=== PATIENT | male | born 1990 | race African-American/Black ===

== ENCOUNTER 2018-01-22 06:50 | Emergency (ER) | payer SELFPAY ==
[2018-01-22] MEDS ORDERED: Ketorolac 60 MG/2 ML SDV IM ONE (07:32)
--- NOTE | 2018-01-22 07:55 | EDM.PDOC ---
ED HPI GENERAL MEDICAL PROBLEM - General Chief Complaint: Abdominal Pain Stated Complaint: L ABDOMINAL PAIN Time Seen by Provider: 01/22/18 07:15 Source of Information: Reports: Patient History Limitations: Reports: No Limitations - History of Present Illness INITIAL COMMENTS - FREE TEXT/NARRATIVE: 27-year-old otherwise healthy male arrives with left sided flank and lateral left chest pain for the past 24 hours. It hurts to move, breathe, and it seemed to be worse this morning when he was urinating. No fevers or chills, despite it hurting to breathe he does not feel short of breath. He is splinting his respirations. It started after he was carrying his child around yesterday but he doesn't remember any specific incident. He is a "customs inspector" by trade and he says this hurts as much as anything he's ever had. He has no rash over the tender area or bruising. He has never had this in the past. On further questioning he does admit that he's had some lower extremity edema over the last several days, starting on the left. He couldn't even get his boots on the last couple of days. He has no leg pain. Onset: Gradual Duration: Day(s): (Over the past 24 hours) Location: Reports: Chest, Abdomen Severity: Moderate Improves with: Reports: Other (Took some Tylenol this morning and that seemed to help) Worsens with: Reports: Movement Associated Symptoms: Reports: Chest Pain. 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 Denies: Shortness of Breath, Cough Cardiovascular: Denies: Dyspnea on Exertion, Palpitations GI/Abdominal: Reports: Abdominal Pain (Extreme upper lateral abdomen under the distal rib cage) : Reports: Flank Pain. Denies: Dysuria, Frequency Musculoskeletal: Denies: Leg Pain Skin: Reports: No Symptoms Neurological: Reports: No Symptoms Free Text/Narrative/Comment: Patient has been experiencing lower extremity edema over the past several days, somewhat worse on the left. ED EXAM, GENERAL - Physical Exam Exam: See Below Exam Limited By: No Limitations General Appearance: Alert, Mild Distress (Looks fairly uncomfortable, especially when moving) Head: Atraumatic Respiratory/Chest: No Respiratory Distress, Lungs Clear, Other (I can reproduce some pain when palpating the lower border of the left lateral ribs, also he responds to pain with percussion of the left flank) Cardiovascular: Regular Rate, Rhythm. No: Extra Beats GI/Abdominal: Soft, Tender (Some minimal tenderness to deep palpation of the left upper quadrant, no guarding or rebound) Extremities: Pedal Edema (Patient does have fairly symmetric trace edema bilaterally of the lower extremities around the ankles) Neurological: Alert, Oriented Skin Exam: Warm, Dry Course - Vital Signs Last Recorded V/S: Last Vital Signs Temp 96.8 F 01/22/18 07:07 Pulse 101 H 01/22/18 09:48 Resp 16 01/22/18 09:48 BP 133/73 01/22/18 09:48 Pulse Ox 98 01/22/18 09:48 - Orders/Labs/Meds Orders: Active Orders 24 hr Category Date Time Status Abdomen Pelvis wo Cont [CT] Stat Exams 01/22/18 07:32 Taken Labs: Laboratory Tests 01/22/18 01/22/18 01/22/18 Range/Units 08:30 08:30 08:30 WBC 8.9 (4.5-11.0) K/uL RBC 4.78 (4.30-5.90) M/uL Hgb 13.5 (12.0-15.0) g/dL Hct 39.2 L (40.0-54.0) % MCV 82 (80-98) fL MCH 28 (27-31) pg MCHC 34 (32-36) % Plt Count 211 (150-400) K/uL Neut % (Auto) 75 H (36-66) % Lymph % (Auto) 14 L (24-44) % [place] % (Auto) 9 H (2-6) % Eos % (Auto) 2 (2-4) % Baso % (Auto) 0 (0-1) % D-Dimer, Quantitative 497 H (0.0-400.0) ng/mL Sodium 141 (140-148) mmol/L Potassium 3.9 (3.6-5.2) mmol/L Chloride 105 (100-108) mmol/L Carbon Dioxide 26 (21-32) mmol/L Anion Gap 10.3 (5.0-14.0) mmol/L BUN 14 (7-18) mg/dL Creatinine 1.2 (0.8-1.3) mg/dL Est Cr Clr Drug Dosing 74.42 mL/min Estimated GFR (MDRD) > 60 (>60) Glucose 119 H (74-106) mg/dL Calcium 8.9 (8.5-10.1) mg/dL Total Bilirubin 0.6 (0.2-1.0) mg/dL AST 23 (15-37) U/L ALT 68 (12-78) U/L Alkaline Phosphatase 118 H (46-116) U/L Total Protein 7.2 (6.4-8.2) g/dL Albumin 3.8 (3.4-5.0) g/dL Globulin 3.4 (2.3-3.5) g/dL Albumin/Globulin Ratio 1.1 L (1.2-2.2) Meds: Medications Discontinued Medications Generic Name Dose Route Start Last Admin Trade Name Freq PRN Reason Stop Dose Admin Sodium Chloride 1,000 mls @ 1,000 mls/hr 01/22/18 09:30 Normal Saline IV ASDIRECTED [facility] Ketorolac Tromethamine 60 mg 01/22/18 07:32 01/22/18 07:36 Toradol IM 01/22/18 07:33 60 mg ONETIME ONE Administration - Re-Assessments/Exams Free Text/Narrative Re-Assessment/Exam: 01/22/18 07:54 Patient was given 60 mg of IM Toradol, and a CT of the abdomen and pelvis was obtained without contrast. This acts musculoskeletal and if his CT is negative I think we can treat as such. 01/22/18 08:21 Toradol helped the pain but it did not resolve. CT scan was negative except for a small amount of atelectasis in the left lung base. The possibility of a PE needs to be considered, CBC, CMP and d-dimer were obtained. 01/22/18 09:22 Majority of labs are normal but d-dimer is elevated at 497. I think it chest CT with IV contrast is necessary. 01/22/18 09:[address] was canceled due to a contrast allergy. We'll proceed with ultrasounds of the lower extremities. 01/22/18 10:36 ultrasounds of both lower extremities were completely negative. This pain was almost completely resolved after the Toradol injection. He was given 10 additional doses of ketorolac to take 3 times a day through the weekend, expected to increase activity as tolerated and can recheck next week if not improving and we can consider a VQ scan or some other investigation. Departure - Departure Time of Disposition: 10:55 Disposition: Home, Self-Care 01 Condition: Good Clinical Impression: Left-sided chest wall pain - Discharge Information Instructions: Chest Wall Pain Referrals: PCP,None [Primary Care Provider] - Forms: ED Department Discharge Care Plan Goals: Take one pain medication every 6-8 hours through the weekend. Activity as tolerated, and recheck next week if not improving satisfactorily or return sooner at any time if worsening or concerns. - My Orders Last 24 Hours: My Active Orders 01/22/18 07:32 Abdomen Pelvis wo Cont [CT] Stat - Assessment/Plan Last 24 Hours: My Active Orders 01/22/18 07:32 Abdomen Pelvis wo Cont [CT] Stat
[2018-01-22] MEDS ORDERED: Sodium Chloride 0.9% 1,000 ML IV SCH (09:30)
--- NOTE | 2018-01-22 11:13 | US ---
VL Duplex Lwr Ext Veins Comp HISTORY: Pain. FINDINGS: The deep veins of the lower extremities bilaterally demonstrate normal augmentation and com pressibility. No evidence for deep venous thrombosis. IMPRESSION: Normal bilateral lower extremity venous Doppler ultrasound.
== END 2018-01-22 10:55 | disposition home or self-care (01) ==
LOC: JP.ED 06:50
DX: R07.89 Other chest pain (principal); Z91.041 Radiographic dye allergy status; Z91.040 Latex allergy status
CPT/HCPCS: 36415; 74176; 80053; 85025; 85379; 93970; 96372; 99284; J1885

== ENCOUNTER 2018-01-22 21:24 | Emergency (ER) | payer SELFPAY ==
[2018-01-22] MEDS ORDERED: Lactated Ringers 1,000 ML IV SCH (23:15)
[2018-01-22] MEDS ORDERED: fentaNYL 100 MCG/2 ML SDV IVPUSH ONE (23:16)
--- NOTE | 2018-01-22 23:18 | EDM.PDOC ---
ED HPI GENERAL MEDICAL PROBLEM - General Chief Complaint: Abdominal Pain Stated Complaint: PAIN LEFT SIDE Time Seen by Provider: 01/22/18 23:00 Source of Information: Reports: Patient, Family, Old Records, RN Notes Reviewed History Limitations: Reports: No Limitations - History of Present Illness INITIAL COMMENTS - FREE TEXT/NARRATIVE: 27-year-old gentleman presents emergency department today for ongoing chest and left flank pain as well as fever development. He was in the emergency department earlier today received an extensive workup including blood work, CT scan of the abdomen and pelvis as well as lower extremity ultrasound. The most remarkable aspects of his blood work were slightly elevated d-dimer and the CT scan revealed atelectasis in the left lower lobe however he was not presenting with pneumonialike symptoms. He states the fever just started today he does feel short of breath and the pain is greatest left side of his chest left flank area Left Abdominal Pain Score (Numeric/FACES): 10 - Related Data Allergies Allergy/AdvReac Type Severity Reaction Status Date / Time Iodinated Contrast- Oral and Allergy Facial Verified 01/22/18 22:02 IV Dye Swelling iodine Allergy Rash Verified 01/22/18 22:02 Latex, Natural Rubber Allergy Rash Verified 01/22/18 22:02 Home Meds: Home Meds Ketorolac [Toradol] 1 tab PO Q6H PRN 01/22/18 [History] Past Medical History Respiratory History: Reports: Asthma Genitourinary History: Reports: Other (See Below) Other Genitourinary History: born with only one kidney, in the pelvis Musculoskeletal History: Reports: Fracture Neurological History: Reports: Concussion - Past Surgical History Other Male Surgeries/Procedures: twisted testicle with surgery to fix. Social & Family History - Tobacco Use Smoking Status *Q: Never Smoker - Caffeine Use Caffeine Use: Reports: Soda - Recreational Drug Use Recreational Drug Use: No ED ROS GENERAL - Review of Systems Review Of Systems: See Below Constitutional: Reports: Fever HEENT: Reports: No Symptoms Respiratory: Reports: Shortness of Breath Cardiovascular: Reports: Chest Pain GI/Abdominal: Reports: No Symptoms : Reports: No Symptoms Musculoskeletal: Reports: No Symptoms Skin: Reports: No Symptoms Neurological: Reports: No Symptoms ED EXAM, GENERAL - Physical Exam Exam: See Below Free Text/Narrative:: General: Male, not in any distress, alert and oriented x3 HEENT: head is atraumatic normocephalic, eyes pupils equal round reactive to light, sclera clear no conjunctivitis appreciated. Ears tympanic membranes clear and sexton landmarks and light reflex are present bilaterally canals are clear. Nose no septal deviation, nares are clear, no blood present. Mouth mucosa is moist and pink no erythema or exudate noted in soft palate, tongue is midline uvula is midline, dentition is intact. Neck: Supple no thyromegaly no tracheal deviation. Nodes: Cervical nodes subclavicular nodes nontender no palpable lymphadenopathy noted. Lungs: clear to auscultation bilaterally with symmetrical respirations, no adventitious noise appreciated. CV: Regular rate and rhythm S1 and S2 appreciated no murmurs rubs or gallops noted. Abdomen: Soft, nontender, no palpable masses or organomegaly appreciated, no distention no guarding bowel sounds are present, . Neuro: Cranial nerves II through XII grossly intact Skin: Warm and dry, intact Extremities: No lower extremity edema appreciated, Course - Vital Signs Last Recorded V/S: Last Vital Signs Temp 99.9 F 01/22/18 23:33 Pulse 109 H 01/23/18 00:37 Resp 22 H 01/23/18 00:37 BP 143/80 H 01/23/18 00:37 Pulse Ox 95 01/23/18 00:37 - Orders/Labs/Meds Orders: Active Orders 24 hr Category Date Time Status Vital Signs [RC] Q1H Care 01/22/18 23:11 Active Chest 2V [CR] Urgent Exams 01/22/18 23:11 Taken Chest wo Cont [CT] Stat Exams 01/23/18 00:58 Taken CULTURE BLOOD [BC] Urgent Lab 01/22/18 23:25 Received CULTURE BLOOD [BC] Urgent Lab 01/22/18 23:33 Received Lactated Ringers [Ringers, Lactated] 1,000 ml Med 01/22/18 23:15 Active IV ASDIRECTED Blood Culture x2 Reflex Set [OM.PC] Urgent Oth 01/22/18 23:11 Ordered Medication Orders Lactated Ringer's (Ringers, Lactated) 1,000 mls @ 999 mls/hr IV ASDIRECTED SATISH Last Admin: 01/22/18 23:35 Dose: 999 mls/hr Labs: Laboratory Tests 03/16/18 03/16/18 03/16/18 Range/Units 23:25 23:25 23:25 WBC 8.9 (4.5-11.0) K/uL RBC 4.60 (4.30-5.90) M/uL Hgb 12.9 (12.0-15.0) g/dL Hct 37.8 L (40.0-54.0) % MCV 82 (80-98) fL MCH 28 (27-31) pg MCHC 34 (32-36) % Plt Count 215 (150-400) K/uL Neut % (Auto) 71 H (36-66) % Lymph % (Auto) 17 L (24-44) % [place] % (Auto) 11 H (2-6) % Eos % (Auto) 1 L (2-4) % Baso % (Auto) 0 (0-1) % Sodium 140 (140-148) mmol/L Potassium 4.0 (3.6-5.2) mmol/L Chloride 105 (100-108) mmol/L Carbon Dioxide 25 (21-32) mmol/L Anion Gap 10.4 (5.0-14.0) mmol/L BUN 16 (7-18) mg/dL Creatinine 1.3 (0.8-1.3) mg/dL Est Cr Clr Drug Dosing TNP Estimated GFR (MDRD) > 60 (>60) Glucose 163 H (74-106) mg/dL Lactic Acid 2.0 (0.4-2.0) mmol/L Calcium 9.2 (8.5-10.1) mg/dL Total Bilirubin 0.5 (0.2-1.0) mg/dL AST 24 (15-37) U/L ALT 66 (12-78) U/L Alkaline Phosphatase 129 H (46-116) U/L C-Reactive Protein 8.76 H (0.0-0.3) mg/dL Total Protein 7.1 (6.4-8.2) g/dL Albumin 3.7 (3.4-5.0) g/dL Globulin 3.4 (2.3-3.5) g/dL Albumin/Globulin Ratio 1.1 L (1.2-2.2) Urine Color Urine Appearance Urine pH (4.5-8.0) Ur Specific [place] (1.008-1.030) Urine Protein (NEGATIVE) mg/dL Urine Glucose (UA) (NEGATIVE) mg/dL Urine Ketones (NEGATIVE) mg/dL Urine Occult Blood (NEGATIVE) Urine Nitrite (NEGAITVE) Urine Bilirubin (NEGATIVE) Urine Urobilinogen (NORMAL) mg/dL Ur Leukocyte Esterase (NEGATIVE) Urine RBC (0-5) Urine WBC (0-5) Ur Epithelial Cells Amorphous Sediment Urine Bacteria Urine Mucus 01/22/18 Range/Units 23:35 WBC (4.5-11.0) K/uL RBC (4.30-5.90) M/uL Hgb (12.0-15.0) g/dL Hct (40.0-54.0) % MCV (80-98) fL MCH (27-31) pg MCHC (32-36) % Plt Count (150-400) K/uL Neut % (Auto) (36-66) % Lymph % (Auto) (24-44) % [place] % (Auto) (2-6) % Eos % (Auto) (2-4) % Baso % (Auto) (0-1) % Sodium (140-148) mmol/L Potassium (3.6-5.2) mmol/L Chloride (100-108) mmol/L Carbon Dioxide (21-32) mmol/L Anion Gap (5.0-14.0) mmol/L BUN (7-18) mg/dL Creatinine (0.8-1.3) mg/dL Est Cr Clr Drug Dosing Estimated GFR (MDRD) (>60) Glucose (74-106) mg/dL Lactic Acid (0.4-2.0) mmol/L Calcium (8.5-10.1) mg/dL Total Bilirubin (0.2-1.0) mg/dL AST (15-37) U/L ALT (12-78) U/L Alkaline Phosphatase (46-116) U/L C-Reactive Protein (0.0-0.3) mg/dL Total Protein (6.4-8.2) g/dL Albumin (3.4-5.0) g/dL Globulin (2.3-3.5) g/dL Albumin/Globulin Ratio (1.2-2.2) Urine Color Yellow Urine Appearance Clear Urine pH 6.5 (4.5-8.0) Ur Specific [place] 1.005 L (1.008-1.030) Urine Protein Negative (NEGATIVE) mg/dL Urine Glucose (UA) Normal (NEGATIVE) mg/dL Urine Ketones Negative (NEGATIVE) mg/dL Urine Occult Blood Negative (NEGATIVE) Urine Nitrite Negative (NEGAITVE) Urine Bilirubin Negative (NEGATIVE) Urine Urobilinogen Normal (NORMAL) mg/dL Ur Leukocyte Esterase Negative (NEGATIVE) Urine RBC Not seen (0-5) Urine WBC Not seen (0-5) Ur Epithelial Cells Not seen Amorphous Sediment Rare Urine Bacteria Not seen Urine Mucus Rare Meds: Medications Generic Name Dose Route Start Last Admin Trade Name Freq PRN Reason Stop Dose Admin Lactated Ringer's 1,000 mls @ 999 mls/hr 01/22/18 23:15 01/22/18 23:35 Ringers, Lactated IV 999 mls/hr ASDIRECTED SATISH Administration Discontinued Medications Generic Name Dose Route Start Last Admin Trade Name Freq PRN Reason Stop Dose Admin Fentanyl 50 mcg 01/22/18 23:16 01/22/18 23:40 Sublimaze IVPUSH 01/22/18 23:17 50 mcg ONETIME ONE Administration Departure - Departure Time of Disposition: 02:28 Disposition: Home, Self-Care 01 Condition: Good Clinical Impression: Community acquired pneumonia Qualifiers: Laterality: left Lung location: lower lobe of lung Qualified Code(s): J18.1 - Lobar pneumonia, unspecified organism - Discharge Information Referrals: PCP,None [Primary Care Provider] - Forms: ED Department Discharge Additional Instructions: Take full course of antibiotics, use Tylenol or Motrin as needed for fever control and pain baseline, for breakthrough pain use the hydrocodone, Please followup with your primary care provider in 3-5 days if not better, please call return to the emergency department with worsening of symptoms. - My Orders Last 24 Hours: My Active Orders 01/22/18 23:11 Vital Signs [RC] Q1H Chest 2V [CR] Urgent Blood Culture x2 Reflex Set [OM.PC] Urgent 01/22/18 23:15 Lactated Ringers [Ringers, Lactated] 1,000 ml IV ASDIRECTED 01/22/18 23:25 CULTURE BLOOD [BC] Urgent 01/22/18 23:33 CULTURE BLOOD [BC] Urgent 01/23/18 00:58 Chest wo Cont [CT] Stat - Assessment/Plan Last 24 Hours: My Active Orders 01/22/18 23:11 Vital Signs [RC] Q1H Chest 2V [CR] Urgent Blood Culture x2 Reflex Set [OM.PC] Urgent 01/22/18 23:15 Lactated Ringers [Ringers, Lactated] 1,000 ml IV ASDIRECTED 01/22/18 23:25 CULTURE BLOOD [BC] Urgent 01/22/18 23:33 CULTURE BLOOD [BC] Urgent 01/23/18 00:58 Chest wo Cont [CT] Stat Plan: Assessment Acuity = acute Site and laterality = community-acquired pneumonia Etiology = probable bacterial cause Manifestations = left-sided pain Location of injury = Home Lab values = CBC unremarkable CMP unremarkable CRP elevated at 8.03 lactic acid was normal, chest x-ray shows infiltrates opacity left lower lobe CT scan shows atelectasis or infectious process consistent with pneumonia Plan He initially was tachycardic this did improve with fluids, Tylenol and Motrin as needed for fever control he'll be placed on azithromycin 5 day course, blood cultures pending follow-up with primary care 3-5 days if no improvement, hydrocodone 5/325 one tab by mouth 3 times a day when necessary total #10 written for pain control This note was dictated using [employer] voice recognition software please call with any questions on syntax or milka.
--- NOTE | 2018-01-25 08:42 | CR ---
Chest 2V FINDINGS: The heart and vascular structures are normal in appearance. No infiltrates or effusions are demonstrated. The skeletal structures are unremarkable. IMPRESSION: Negative exam.
== END 2018-01-23 02:59 | disposition home or self-care (01) ==
LOC: JP.ED 21:24
DX: J18.9 Pneumonia, unspecified organism (principal); Z91.09 Other allergy status, other than to drugs and biological substances; Z91.040 Latex allergy status
CPT/HCPCS: 36415; 71046; 71250; 80053; 81001; 83605; 85025; 86140; 87040; 87804; 96361; 96374; 99285; J3010; J7120